=== PATIENT | female | born 1990 | race Caucasian/White ===

== ENCOUNTER 2024-08-24 13:17 | Inpatient (IN) | payer OTHER, SELFPAY ==
[2024-08-24 13:27] VITALS: BMI 30.9
[2024-08-24 14:03] VITALS: BP 116/75
[2024-08-24 14:58] LABS: % Basophils 0.5 % (0-2); % Eosinophils 1.6 % (0-6); % Immature Granulocytes 2.2 % (0-0.5); % Monocytes 4.9 % (1.7-9.3); % Neutrophils 77.8 % (42.2-75.2); Absolute Basophils 0.1 10^3/uL (0-0.2); Absolute Eosinophils 0.2 10^3/uL (0-0.7); Absolute Immature Granulocytes 0.3 10^3/uL (0-0.05); Absolute Lymphocytes 1.5 10^3/uL (1.2-3.4); Absolute Monocytes 0.6 10^3/uL (0.1-0.6); Absolute Neutrophils 8.9 10^3/uL (1.4-6.5); Hematocrit 31.3 % (37.0-47.0); Hemoglobin 9.8 g/dL (12.0-16.0); Mean Corp Hgb Conc. 31.3 g/dL (33.0-37.0); Mean Corpuscular Hgb 25.7 pg (27.0-31.0); Mean Corpuscular Volume 81.9 fL (81.0-99.0); Mean Platelet Volume 11.8 fL (7.4-10.4); Nucleated Red Blood Cells % 0 %; Platelet Count 175 10^3/uL (130-400); Red Blood Cell Count 3.82 10^6/uL (4.20-5.40); Red Cell Dist. Width 14.3 % (11.5-14.5); White Blood Cell Count 11.4 10^3/uL (4.8-10.8)
[2024-08-24] MEDS: CYTOTEC 50 MICROGRAM PO ×3 (15:33→23:58)
[2024-08-24] MEDS: FEOSOL 325 MG PO (19:38)
[2024-08-24] MEDS: ZOLOFT 50 MG PO (19:39)
[2024-08-24] MEDS: SUDAFED 12 HOUR (EXTENDED RELEASE) 120 MG PO (19:40)
[2024-08-25] MEDS: LR 1000 IV ×2 (00:29→01:56)
[2024-08-25] MEDS: STADOL 1 MG IV (00:30)
[2024-08-25] MEDS: SUBLIMAZE 100 MCG EPIDURAL (02:35)
[2024-08-25] MEDS: FENTANYL/BUPIVACAINE 100 EPIDURAL (02:35)
[2024-08-25] MEDS: PITOCIN 30 UNITS/NSS 500 ML IV (03:41)
[2024-08-25] MEDS: METHERGINE INJECTION 0.2 MG IM (04:44)
[2024-08-25] MEDS: CYTOTEC PO (05:31)
[2024-08-25] MEDS: FEOSOL 325 MG PO ×2 (08:38→20:12)
[2024-08-25] MEDS: ZOLOFT 50 MG PO (08:39)
[2024-08-25] MEDS: MOTRIN 600 MG PO ×2 (17:04→22:58)
[2024-08-26 05:46] LABS: Hematocrit 29.2 % (37.0-47.0); Hemoglobin 9.3 g/dL (12.0-16.0)
[2024-08-26] MEDS: ZOLOFT 50 MG PO (08:04)
[2024-08-26] MEDS: FEOSOL 325 MG PO ×2 (08:04→19:45)
[2024-08-26] MEDS: SENOKOT-S 1 TABLET PO (08:04)
[2024-08-26] MEDS: MOTRIN 600 MG PO ×2 (12:40→19:47)
[2024-08-26 16:37] LABS: Syphilis/T. pallidum Ab Reflex Negative (Negative)
[2024-08-26] MEDS: TYLENOL 650 MG PO (16:56)
[2024-08-27] MEDS: ZOLOFT 50 MG PO (09:09)
[2024-08-27] MEDS: FEOSOL 325 MG PO (09:09)
[2024-08-27] MEDS: MOTRIN 600 MG PO (09:09)
[2024-08-27] MEDS: SENOKOT-S 1 TABLET PO (09:09)
== END 2024-08-27 12:43 | disposition home or self-care (01) | DRG 806 ==
LOC: LDRP 13:17
PROVIDERS: ADMITTING PHYSICIAN Obstetrics & Gynecology
PROC: 3E0DXGC Introduction of Other Therapeutic Substance into Mouth and Pharynx, External Approach (ICD-10-PCS; 2024-08-24)
PROC: 4A1HXCZ Monitoring of Products of Conception, Cardiac Rate, External Approach (ICD-10-PCS; 2024-08-24)
PROC: 10E0XZZ Delivery of Products of Conception, External Approach (ICD-10-PCS; 2024-08-25)
DX: O41.03X0 Oligohydramnios, third trimester, not applicable or unspecified (principal); O99.354 Diseases of the nervous system complicating childbirth; Z37.0 Single live birth; O69.81X0 Labor and delivery complicated by cord around neck, without compression, not applicable or unspecified; Z3A.38 38 weeks gestation of pregnancy; O90.81 Anemia of the puerperium; G43.909 Migraine, unspecified, not intractable, without status migrainosus; O99.344 Other mental disorders complicating childbirth; F32.A Depression, unspecified
CPT/HCPCS: 88307; 85014; 85018; 85025; 86780; 86850; 86900; 86901